=== PATIENT | female | born 1955 | race Caucasian/White ===

== ENCOUNTER 2016-06-11 12:45 | Emergency (ER) | payer OTHER ==
[~2016-06-11] VITALS: Ht 177.8 cm; Wt 74.8 kg
--- NOTE | 2016-06-11 13:24 | NUR ---
PT TRANSPORTED TO CT IN STABLE CONDITION
[2016-06-11 13:31] LABS: APPEARANCE,URINE CLEAR (CLEAR); COLOR,URINE YELLOW (YELLOW)
[2016-06-11 13:32] LABS: BILIRUBIN,URINE NEGATIVE (NEGATIVE); BLOOD, URINE NEGATIVE Ery/uL (NEGATIVE); KETONES,URINE NEGATIVE (NEGATIVE); NITRITE, URINE NEGATIVE (NEGATIVE); PH,URINE 6.5 (5.0-8.0); PROTEIN,URINE NEGATIVE (NEGATIVE); UGLUCOSE NEGATIVE (NEGATIVE); UROBILINOGEN,URINE 0.2 EU/dL (0.2)
[2016-06-11 13:33] LABS: LEUKOCYTE ESTERASE ,URINE NEGATIVE (NEGATIVE)
[2016-06-11 13:39] LABS: CANNABINOID, URINE NEGATIVE (NEGATIVE); PHENCYCLIDINE SCREEN,URINE NEGATIVE (NEGATIVE)
[2016-06-11 13:49] LABS: BASOPHILS % (AUTO) 0.8 % (0.0-2.0); EOSINOPHILS # (AUTO) 0.1 /CMM (0.0-0.7); EOSINOPHILS % (AUTO) 2.4 % (0.0-6.0); HEMATOCRIT 38 % (33-45); HEMOGLOBIN 12.6 g/dL (11.5-14.8); LYMPHOCYTES # (AUTO) 1.9 /CMM (0.8-4.8); LYMPHOCYTES % (AUTO) 43.4 % (20.0-44.0); MEAN CORPUSCULAR HEMOGLOBIN 31 PG (26.0-33.0); MEAN CORPUSCULAR HGB CONC 33 g/dl (31.0-36.0); MEAN CORPUSCULAR VOLUME 96 fL (82-100); MONOCYTES # (AUTO) 0.4 /CMM (0.1-1.30); MONOCYTES % (AUTO) 8.9 % (2.0-12.0); NEUTROPHILS % (AUTO) 44.5 % (43.0-81.0); PLATELET COUNT (AUTO) 119 /CMM (150-450); RDW COEFFICIENT OF VARIATION 13.5 (11.5-15.0); RED BLOOD CELL COUNT(AUTO) 3.99 MIL/uL (4.0-5.2); WHITE BLOOD COUNT (AUTO) 4.4 K/uL (4.3-11.0)
[2016-06-11 14:02] LABS: CALCIUM, SERUM 8.6 mg/dL (8.5-10.1); CREATININE 0.5 mg/dL (0.6-1.3); POTASSIUM 3.9 mmol/L (3.5-5.1)
[2016-06-11 14:06] LABS: PROTHROMBIN TIME 10.5 SECS (9.5-12.7)
[2016-06-11 14:19] LABS: ALBUMIN 3.5 g/dL (3.4-5.0); BILIRUBIN,DIRECT 0.1 mg/dL (0.0-0.2); BILIRUBIN,TOTAL 0.3 mg/dL (0.2-1.0); TOTAL PROTEIN, SERUM 7.5 g/dL (6.4-8.2)
[2016-06-11 14:27] LABS: SALICYLATE 2.6 mg/dL (2.8-20.0)
--- NOTE | 2016-06-11 15:15 | NUR ---
CALLED CLINICAL EDITOR WAYNE
--- NOTE | 2016-06-11 15:27 | NUR ---
Social service consult requested by ED STEFF Pepper for resources to Alcohol Rehab. programs. SW met with pt. bedside. Pt. is A&O x 2. Pt. was in the ED for alcohol intoxication. Pt. appeared disheveled and had a strong odor of alcohol. SW gave pt. resources to alcohol and drug Services and Substance abuse treatment programs.
[2016-06-11 17:14] VITALS: BP 134/79
== END 2016-06-12 02:55 | disposition home or self-care (01) ==
LOC: ER 12:46
DX: F10.129 Alcohol abuse with intoxication, unspecified (principal); R79.1 Abnormal coagulation profile
CPT/HCPCS: 36415; 70450; 80048; 80076; 80305; 80329; 81001; 85025; 85730; 99285; A4606 ×2; G0480 ×2; Z7610 ×2; 81000-TC; G6039-TC

== ENCOUNTER 2016-06-12 02:46 | Emergency (ER) | payer OTHER ==
[~2016-06-12] VITALS: Ht 165.1 cm; Wt 63.5 kg
[2016-06-12 05:09] VITALS: BP 116/69
== END 2016-06-12 05:47 | disposition home or self-care (01) ==
LOC: ER 02:52
DX: F10.129 Alcohol abuse with intoxication, unspecified (principal); G40.909 Epilepsy, unspecified, not intractable, without status epilepticus; R79.89 Other specified abnormal findings of blood chemistry
CPT/HCPCS: 82962; 99283; A4606; Z7610